=== PATIENT | male | born 1970 ===

== ENCOUNTER → 2019-10-11 13:22 | Outpatient (CLI) | payer OTHER, SELFPAY ==
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
--- NOTE | ~2019-10-11 | XR_ITS ---
EXAMINATION: XR cervical spine min 6V EXAM DATE: 10/11/2019 13:59 INDICATION: Neck pain. TECHNIQUE: Cervical spine frontal, lateral, and open-mouth odontoid projections. Bilateral oblique projections. There are no prior studies for comparison. FINDINGS: Interbody fusion C4-5 and C5-6. There is moderate disc disease C6-7 and mild to moderate at C7-T1 with 3 mm anterolisthesis at this level. Prevertebral soft tissue and pre-dens space are wit hin normal limits. There is mild to moderate cervical arthropathy in mid cervical neural foraminal st enosis. The odontoid process is intact. The lateral masses of C1 line up with C2. IMPRESSION: 1. Cervical fusion C4-6. 2. Moderate C6-7 disc disease. 3. Mild to moderate arthropathy. Reviewed, dictated and finalized at location A. KET WEAVER
== END ==
DX: M47.812 Spondylosis without myelopathy or radiculopathy, cervical region (principal); M50.923 Unspecified cervical disc disorder at C6-C7 level; M54.12 Radiculopathy, cervical region; Z98.1 Arthrodesis status
CPT/HCPCS: 72052; 72070

== ENCOUNTER → 2019-11-12 12:36 | Outpatient (CLI) | payer OTHER, SELFPAY ==
--- NOTE | ~2019-11-12 | XR_ITS ---
EXAMINATION: XR knee LT min 4V DATE: 11/12/2019 13:08 INDICATION: Left knee pain and swelling. TECHNIQUE: 4 views of left knee were obtained. COMPARISON: None. FINDINGS: Bone alignment is normal. No fracture. There is severe osteoarthritis of medial compartment and mild osteoarthritis of lateral and patellofemoral compartments. There is a small knee joint effu clifton. IMPRESSION: 1. Severe left knee osteoarthritis. 2. Small left knee joint effusion. Reviewed, dictated and finalized at location A. ATE DUTY NURSE
== END ==
PROVIDERS: PCP Family Medicine
DX: M79.89 Other specified soft tissue disorders (principal); M17.12 Unilateral primary osteoarthritis, left knee; M25.462 Effusion, left knee
CPT/HCPCS: 73564

== ENCOUNTER 2024-06-02 14:47 | Outpatient (CLI) | payer OTHER, SELFPAY ==
--- NOTE | ~2024-06-02 | MR_ITS ---
EXAMINATION: MR lumbar spine wo con DATE: 06/02/2024 15:16 INDICATION: Radiculopathy TECHNIQUE: Magnetic resonance imaging (MRI) of the lumbar spine was performed without intravenous con trast. Sequences included sagittal T2-weighted FSE, sagittal T2-weighted FS FSE, sagittal T1-weighted FSE, and axial T2-weighted FSE. COMPARISON: None FINDINGS: 3 mm anterolisthesis L4 on L5. Minimal likely physiologic anterior wedging at T12 and L1. There is mi ld central fatty endplate changes on a few of the endplates in the lumbar spine. Marrow signal is oth erwise normal. Moderate disc height loss at L4-L5. Disc desiccation, mild disc height loss at L5-S1. There are annular fissures at L4-L5 and L5-S1. The conus medullaris terminates at T12-L1. There is no rmal signal in the caudal spinal cord. Paravertebral soft tissues are unremarkable. The following dis c levels are specifically discussed: T12-L1: The disc does not extend beyond the endplate margin. There is mild bilateral facet joint oste oarthritis. There is no neural foraminal stenosis. There is no central canal stenosis. L1-L2: Disc is mildly bulging. There is mild bilateral facet joint osteoarthritis. There is no neural foraminal stenosis. There is minimal central canal stenosis. L2-L3: Disc is mildly bulging. There is mild left and moderate right facet joint osteoarthritis. Ther e is mild bilateral neural foraminal stenosis. There is minimal central canal stenosis. L3-L4: Disc is mildly bulging. There is moderate bilateral facet joint osteoarthritis. There is mild bilateral neural foraminal stenosis. There is minimal central canal stenosis. L4-L5: Diffuse disc bulge with superimposed central disc extrusion with disc material extending to th e level of the inferior endplate of L4. There is hypertrophy of the ligamentum flavum. There is paris re bilateral facet joint osteoarthritis. There is moderate bilateral neural foraminal stenosis. There is mild central canal stenosis. There is also narrowing of the left and right lateral recesses more prominent on the left where there is also a 10 x 7 x 8 mm synovial cyst arising from the left facet j oint which exerts mass effect upon the posterior lateral margin of the traversing left L5 nerve root. L5-S1: Disc is bulging with superimposed annular fissure and central to right foraminal zone disc pro trusion. There is mild left and mild to moderate right facet joint osteoarthritis. There is mild left and moderate to severe right neural foraminal stenosis. There is minimal central canal stenosis with additional mild narrowing of the right lateral recess. IMPRESSION: 1. Moderate lower lumbar predominant spondylosis. Reviewed, dictated and finalized at location A.
== END 2024-06-02 14:48 | disposition home or self-care (01) ==
LOC: MICIMG 14:48
PROVIDERS: PCP Student in an Organized Health Care Education/Training Program
DX: M48.061 Spinal stenosis, lumbar region without neurogenic claudication (principal); M43.06 Spondylolysis, lumbar region
CPT/HCPCS: 72148